=== PATIENT | female | born 1980 | race Caucasian/White ===

== ENCOUNTER 2019-04-30 12:06 | Outpatient (REF) | payer MEDICAID, SELFPAY ==
--- NOTE | 2019-04-30 10:20 | PAPFT_PTH ---
PATIENT: Charlotte Costa LOC: [facility] U#:[id number] AGE/SX: 38/F ROOM: RE04/30/[address]: Beth Go : 1980 BED: DIS: 04/30/2019 SPEC #: [id number] RECD: 04/30/19 13:02 STATUS: DAPHNEY REGenesis #: [id number] CHRISTIAN: 04/30/19 10:[address]: Beth Go DEPT: [facility] Cytology RECD BY: Dai Donovan ENTERED: 04/30/19 13:02 SP TYPE: PAPFT OTHR DR: Reginald Regalado Tissues: 1 - CX/ENDOCX FOR PAP SMEARS Procedures: PAP THIN PREP/UVM Screening HPV DNA PROBE Comments: [id number]
[2019-05-01 12:41] LABS: Chlamydia Result Negative; GC Result Negative; Specimen Description CERVIX
== END 2019-04-30 12:26 ==
LOC: LBN 12:06
PROVIDERS: PCP Nurse Practitioner Family; Visit Provider Obstetrics & Gynecology Gynecology
DX: Z11.3 Encounter for screening for infections with a predominantly sexual mode of transmission (principal); Z12.4 Encounter for screening for malignant neoplasm of cervix; Z11.51 Encounter for screening for human papillomavirus (HPV)
CPT/HCPCS: 87491; 87591; 88142; 87624

== ENCOUNTER 2019-07-28 15:59 | Emergency (ER) | payer MEDICAID, SELFPAY ==
[2019-07-28 16:04] VITALS: BP 142/90; PULSE 80; RESP 18; TEMP 36.6; O2SAT 97
--- NOTE | 2019-07-28 16:09 | DI.RAD_ITS ---
SYMPTOM/DIAGNOSIS: PAIN, SWELLING LEFT ANKLE: There is no evidence of a fracture or dislocation. No bony or joint abnormality is apparent.
--- NOTE | 2019-07-28 16:12 | W.ED.GENAD ---
Discharge Plan Disposition Patient Disposition: HOME Condition: Improving Discharge Details Chief Complaint: Orthopedic Clinical Impression: Left ankle sprain Primary Care Provider: Reginald Regalado ED Provider: Dio Bueno Home Meds and New Rx's Prescriptions: Continued ibuprofen 800 mg Tablet 800 mg PO TID PRNRF: 0 Discharge Instructions Instructions: Ankle Sprain (ED) Additional Instructions: Walking boot for 7 to 10 days time. Initially nonweightbearing with crutches, then begin crutch walking as we discussed. Follow-up with regular doctor if not improved in 10 days time. Continue ice, elevation, Tylenol and/or ibuprofen as needed for pain. Return for any worsening discomfort or any other acute concern. Medical Decision Making Otherwise healthy 39-year-old female who turned her left ankle while dancing last night. Lateral malleoli are swelling and tenderness without abnormal vascular or sensory exam. Referred for x-ray which does not show evidence of acute fracture. She will continue crutch use, placed in walking boot to be removed for bathing and sleep if preferred. She will follow-up with PMD if not improving in 7 to 10 days time for reevaluation. Likely simple ankle sprain but will resolve in that timeframe. Discussed with her home management/follow-up. Stable for discharge at this time. HPI General Mode of arrival: ambulatory. Date/Time Provider Initiated Documentation: 07/28/19 16:08. Limitations to Documentation: no limitations. Information obtained by: patient. History of Present Illness 39 year old F presents to the emergency department with the chief complaint of Left ankle pain while dancing last night and rolled it, described as moderate, Quality is described as aching, and is localized to the left and lower extremity. Patient reports no radiation. Patient started experiencing this hour(s) and it has been constant. Rest improves symptom(s), Movement worsens symptoms . Patient did receive the following treatments prior to arrival, NSAID, cold therapy and other (Crutches) Related Data Home Medications Medication Instructions Recorded Confirmed ibuprofen 800 mg PO TID PRN 07/28/19 07/28/19 Allergies Allergy/AdvReac Type Severity Reaction Status Date / Time latex Allergy Skin Rash Unverified 07/28/19 16:07 No Known Drug Allergies Allergy Unverified 07/28/19 16:07 General Stated Complaint: Orthopedic ROVERTO: 4 Review of Systems Review of Systems Narrative: 6 systems reviewed and otherwise negative. No recent illness. No objective numbness PFSH Medical History DAVID II (cervical intraepithelial neoplasia II) 2012 LEEP: + endocervical margin 2013. 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 LEEP recommended. Did not f/u. 03/2018 LEEP: CIN2. Focally + endocervical margin. Depression Tobacco use Surgical History Cervical Conization/LEEP (03/21/18) [facility]. [facility] section 1996 Ligation of fallopian tube 2006 Family History Other Diabetes Seizure disorder Social History (Updated 06/01/19 @ 12:37 by Beth Go MD) Smoking/Tobacco Use Status: Current every day Alcohol Intake: current Alcohol Intake frequency: a few times a week Counseling given: No Drug use: Never Household members: children and other Number of Children: 4 Do you feel safe in your relationship?: Yes Additional Social history: Children: [employer]. [employer]. Daughter 16yo. Female Reproductive History Menstrual control method: permanent sterilization (tubal ligation) History History 4 Para Hx # Term Pregnancies 4 Multiple births Hx # Pregnancies Ectopic pregnancies AB induced Hx Number of Living Children AB spontaneous Exam Narrative Exam Narrative: GEN: awake, alert, oriented 3. Pleasant, well groomed, interactive. HEAD: Normocephalic, atraumatic ENT: Mucous membranes moist, oropharynx unremarkable, External ear exam unremarkable EYES: PERRL, EOMI EXT: Full ROM, left foot and ankle mildly edematous, tender lateral greater than medial malleoli are regions left foot. 2+ DP bilaterally. Sensation intact throughout. Normal distal motion, no rash Neuro: Grossly normal neurologic exam, conversant, interactive. Psych: Speech fluent, thoughts congruent, affect normal Course Vital Signs Vital signs: Vital Signs Temperature 36.6 C 07/28/19 16:04 Pulse 80 07/28/19 16:04 Respiratory Rate 18 07/28/19 16:04 Blood Pressure 142/90 H 07/28/19 16:04 Pulse Oximetry 97 07/28/19 16:04 Temperature 36.6 C 07/28/19 16:04 Pulse 80 07/28/19 16:04 Respiratory Rate 18 07/28/19 16:04 Blood Pressure 142/90 H 07/28/19 16:04 Blood Pressure Position Sitting 07/28/19 16:04 Pulse Oximetry 97 07/28/19 16:04 Oxygen Delivery Method Room Air 07/28/19 16:04 Oxygen Flow Rate 0 07/28/19 16:04 Pain Level 7 07/28/19 16:04
--- NOTE | 2019-07-28 16:34 | DI.VRAD_ITS ---
EXAM: XR Left Ankle EXAM DATE/TIME: 07/28/2019 4:10 PM CLINICAL HISTORY: 39 years old, female; Pain; Ankle; Left TECHNIQUE: Imaging protocol: XR Left ankle. Views: 3 or more views. COMPARISON: No relevant prior studies available. FINDINGS: Bones/joints: Unremarkable. Soft tissues: Unremarkable. IMPRESSION: No evidence for acute bony injury. If clinical symptoms persist recommend followup film in 7-10 days. Dictated and Authenticated by: Yissel Salazar MD. Ordering:BETY Wharton MD
--- NOTE | 2019-07-28 16:50 | NUR.NOTE ---
Nursing Note: pt discharged to home. instructions reviewed, pt educated on airboot. understanding verbalized. p
[2019-07-28] MEDS: Acetaminophen 500 MG TAB 1000 MG PO (19:48)
== END 2019-07-28 17:01 | disposition home or self-care (01) ==
PROVIDERS: Emergency Provider Emergency Medicine; PCP Nurse Practitioner Family
DX: S93.402A Sprain of unspecified ligament of left ankle, initial encounter (principal); X50.9XXA Other and unspecified overexertion or strenuous movements or postures, initial encounter; Y93.41 Activity, dancing
CPT/HCPCS: 29515; 99283; 73610; L4361

== ENCOUNTER 2021-01-15 19:57 | Emergency (ER) | payer MEDICAID, SELFPAY ==
[2021-01-15 20:02] VITALS: BP 125/108; PULSE 83; RESP 18; TEMP 36.9; O2SAT 99
--- NOTE | 2021-01-15 20:10 | ED.GENADUL_ITS ---
Discharge Plan Disposition Patient Disposition: HOME Condition: Good Discharge Details Clinical Impression: Trichomonal cystitis Primary Care Provider: Reginald Regalado ED Provider: Dai Nogueira Home Meds and New Rx's Prescriptions: New cephalexin 500 mg capsule 500 mg PO QID Qty: 14 RF: 0 phenazopyridine [Pyridium] 200 mg tablet 200 mg PO TID PRNQty: 6 RF: 0 No Action ibuprofen 800 mg Tablet 800 mg PO TID PRNRF: 0 Discharge Instructions Instructions: Trichomoniasis (ED), Urinary Tract Infection in Women (ED) Additional Instructions: Take antibiotic as prescribed, yogurt daily while on antibiotic Your partner and any other sexual contacts you have had should be tested and/or treated for trichomonas, the results of additional time testing is pending, we will notify you if tests are positive I recommend repeat testing in 1 to 2 weeks You should not have intercourse until you and your partner are retested She develops fever, chills, worsening pain, please return to the emergency room You may take Pyridium as needed for discomfort Medical Decision Making Patient's urine was positive for trichomonas therefore STD testing for gonorrhea and chlamydia was ordered I also ordered an HIV test after discussion with patient She was treated for trichomonas with 2 g of metronidazole, she was treated empirically for gonorrhea and chlamydia with 500 mg of ceftriaxone IM and 2 g of azithromycin p.o. HIV test pending No evidence of pelvic inflammatory disease on my exam today I did also treat the patient for a suspected urinary tract infection with Keflex although I suspect she has trichomonas cystitis She is feeling mild improvement with the Pyridium She given a prescription for Pyridium for home She instructed follow-up with her primary care physician for reevaluation in the outpatient setting She is given a threshold to return should she have new or worsening complaints Urine culture is pending Patient does not have sided flank tenderness, lower suspicion for ureterolithiasis, will need repeat urinalysis specimen with primary care physician Treatment for trichomonas for partners and making partners aware of need for testing was reinforced Differential Diagnosis Differential Diagnosis: Cystitis, pelvic inflammatory disease, std, ureterolithiasis Medical Records Medical records reviewed: Yes I reviewed the patient's medical records. Lab Data Lab results reviewed: Yes I reviewed the patient's lab results. HPI This 40-year-old female she is here with urinary frequency and burning. Her symptoms started 24 hours ago. She denies any chest pain or shortness of breath. Patient does not have any associated nausea or vomiting. She denies any history of ureterolithiasis. She denies any chance of . She had the burning pain first and then noted blood in her urine. Denies any additional complaints at this time. Denies history of coagulopathy. Denies risk of sexually transmitted disease. Denies fever or chills. General Date/Time Provider Initiated Documentation: 01/15/21 20:00 . Related Data Home Medications Medication Instructions Recorded Confirmed ibuprofen 800 mg PO TID PRN 07/28/19 07/28/19 cephalexin 500 mg PO QID #14 cap 01/15/21 phenazopyridine [Pyridium] 200 mg PO TID PRN #6 tab 01/15/21 Previous Rx's Medication Instructions Recorded cephalexin 500 mg PO QID #14 cap 01/15/21 phenazopyridine [Pyridium] 200 mg PO TID PRN #6 tab 01/15/21 Allergies Allergy/AdvReac Type Severity Reaction Status Date / Time latex Allergy Skin Rash Unverified 07/28/19 16:07 No Known Drug Allergies Allergy Unverified 07/28/19 16:07 General Stated Complaint: Urinary ROVERTO: 4 Review of Systems Narrative: Review of systems negative x7 aside from where indicated in HPI [facility] Medical History (Updated 01/15/21 @ 21:15 by BETTE Cheung) DAVID II (cervical intraepithelial neoplasia II) 2012 LEEP: + endocervical margin 2013. 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 LEEP recommended. Did not f/u. 03/2018 LEEP: CIN2. Focally + endocervical margin. Depression Tobacco use Surgical History Cervical Conization/LEEP (03/21/18) [facility]. [facility] section 1996 Ligation of fallopian tube 2006 Family History Other Diabetes Seizure disorder Social History (Updated 06/01/19 @ 12:37 by Beth Go MD) Smoking/Tobacco Use Status: Current every day Smoking risk assessment performed?: Yes Alcohol Intake: current Alcohol Intake frequency: a few times a week Counseling given: No Drug use: Never Substance use type: does not use Household members: children and other Number of Children: 4 Do you feel safe at home: Yes Do you feel safe in your relationship?: Yes Additional Social history: Children: [employer]. [employer]. Daughter 16yo. Female Reproductive History Menstrual control method: permanent sterilization (tubal ligation) History History 4 Para Hx # Term Pregnancies 4 Multiple births Hx # Pregnancies Ectopic pregnancies AB induced Hx Number of Living Children AB spontaneous Exam Const General: healthy appearing and no acute distress GI Palpation: nontender General: No CVA tenderness External Female Exam: normal external appearance Speculum Exam - Vagina: normal appearance of the vagina and normal vaginal discharge Speculum Exam - Cervix: normal appearance of the cervix and nontender Bimanual Exam- Vagina & Uterus: normal bimanual exam, No tender and no cervical motion tenderness Bimanual Exam- Adnexa, other: normal adnexae Course Vital Signs Vital signs: Vital Signs Temperature 36.9 C 01/15/21 20:02 Pulse 83 01/15/21 20:02 Respiratory Rate 18 01/15/21 20:02 Blood Pressure 125/108 H 01/15/21 20:02 Pulse Oximetry 99 01/15/21 20:02 Temperature 36.9 C 01/15/21 20:02 Temperature Source Temporal Artery Scan 01/15/21 20:02 Pulse 83 01/15/21 20:02 Respiratory Rate 18 01/15/21 20:02 Respiratory Effort Non-Labored 01/15/21 20:05 Blood Pressure 125/108 H 01/15/21 20:02 Blood Pressure Position Sitting 01/15/21 20:02 Pulse Oximetry 99 01/15/21 20:02 Oxygen Delivery Method Room Air 01/15/21 20:02 Oxygen Flow Rate 0 01/15/21 20:02 Pain Level 10 01/15/21 20:02
[2021-01-15 20:17] LABS: Bilirubin Negative (Negative); Blood Moderate (Negative); Clarity Clear (Clear); Glucose Negative (Negative); Ketones Negative (Negative); Leukocyte Esterase Trace (Negative); Nitrite Negative (Negative); Urobilinogen 0.2 EU/dL (Up TO 0.2); pH 8.5 (5-8)
[2021-01-15] MEDS: Phenazopyridine 200 MG TAB PO (20:24)
[2021-01-15 20:25] LABS: RBC 20-50 HPF (0-2)
[2021-01-15 20:26] LABS: Bacteria Negative HPF (Negative); C & S Indicated? No/Sq. Contamination; Casts Negative LPF (Negative); Crystals Negative HPF (Negative); Epithelial Cells Moderate HPF (Negative); Mucus Negative (Negative)
[2021-01-15] MEDS: Ondansetron O.D.T. 4 MG TABEF, 3 TABS/BTL PO (21:12)
[2021-01-15] MEDS: Cephalexin 500 MG CAP PO (21:12)
[2021-01-15] MEDS: metroNIDAZOLE 500 MG TAB 2000 MG PO (21:12)
[2021-01-15] MEDS: Azithromycin 250 MG TAB 1000 MG PO (21:12)
[2021-01-15 21:20] VITALS: BP 132/78; PULSE 83; RESP 18; TEMP 36.9; O2SAT 97
[2021-01-18 10:55] LABS: HIV-1/2 Ag & Ab Screen Negative (Negative)
[2021-01-18 15:27] LABS: Chlamydia Result Negative (Negative); GC Result Negative (Negative)
== END 2021-01-15 21:20 | disposition home or self-care (01) ==
PROVIDERS: Emergency Provider Physician Assistant; PCP Nurse Practitioner Family
DX: A59.03 Trichomonal cystitis and urethritis (principal)
CPT/HCPCS: 36415; 87389; 87491; 87591; 96372; 99284; 81003; 81015; 99283

== ENCOUNTER 2021-05-26 17:36 | Outpatient (REF) | payer MEDICAID, SELFPAY ==
[2021-05-28 15:06] LABS: Chlamydia Result Negative (Negative); GC Result Negative (Negative)
== END 2021-05-26 17:37 | disposition home or self-care (01) ==
LOC: LBN 17:36
PROVIDERS: PCP Nurse Practitioner Family; Visit Provider Advanced Practice Midwife
DX: T19.2XXA Foreign body in vulva and vagina, initial encounter (principal)
CPT/HCPCS: 87491; 87591; 87480; 87510; 87660

== ENCOUNTER 2022-08-10 15:10 | Outpatient (REF) | payer MEDICAID, SELFPAY ==
--- NOTE | 2022-08-10 14:35 | PAPFT_PTH ---
PATIENT: Charlotte Costa LOC: О[facility] U#:[id number] AGE/SX: 42/F ROOM: RE08/10/[address]: Beth Go : 1980 BED: DIS: 08/10/2022 SPEC #: [id number] RECD: 08/10/22 17:51 STATUS: DAPHNEY REGenesis #: [id number] CHRISTIAN: 08/10/22 14:[address]: Beth Go DEPT: [facility] Cytology RECD BY: Dai Donovan Tissues: 1 - CX/ENDOCX FOR PAP SMEARS Procedures: PAP THIN PREP/UVM Screening HPV DNA PROBE Comments: [id number]
[2022-08-11 15:38] LABS: Chlamydia Result Negative (Negative); GC Result Negative (Negative)
== END 2022-08-10 15:11 | disposition home or self-care (01) ==
LOC: LBN 15:10
PROVIDERS: Visit Provider Obstetrics & Gynecology Gynecology
DX: Z11.3 Encounter for screening for infections with a predominantly sexual mode of transmission (principal); Z12.4 Encounter for screening for malignant neoplasm of cervix; Z11.51 Encounter for screening for human papillomavirus (HPV)
CPT/HCPCS: 87491; 87591; 88142; 87624